=== PATIENT | male | born 1995 | race Caucasian/White ===

== ENCOUNTER 2023-03-07 12:55 | Outpatient (AMB) | payer MEDICAID, SELFPAY ==
--- NOTE | 2023-03-07 13:05 | MHC.OFFVIS ---
Intake Vital Signs 03/07/23 13:12 Height 5 ft 10 in Weight 205 lb BMI 29.4 Intake Visit Reasons: Vasectomy Consult Intake Note: Himanshu 27 yr old male presents today with his girlfriend Cinthya for a vasectomy consult. Patient reports he has 3 children. Allergies No Known Allergies [No Known Allergies*] Allergy (Unverified 03/07/23 13:12) HPI HPI Comments History of Present Illness Details Himanshu is a 27-year-old male who presents to the office as a new patient evaluation for vasectomy consult. 03/07/23-- The patient has three children with his female partner. The patient states that he does not want anymore children. Vasectomy procedure was discussed at length with the patient. He was informed that vasectomy is a safe, permanent, and effective form of control but there are risks involved. It may involve risk of hematoma, procedure failure which is rare, sperm granuloma which may cause mild pain, and congestion which may cause sense of pressure and resolves after several weeks. The patient was advised that it is necessary to use other types of control methods like condom until we send semen for analysis to make sure there is no more sperm in the semen which is done after two and a half months post vasectomy. Patient would be given antibiotic therapy as an infection prophylaxis before the procedure. Consent regarding the vasectomy consult was obtained. Evaluation today-- Blood: negative, leukocytes: negative. Plan: Vasectomy discussed to be scheduled. [facility] Social History (Updated 03/07/23 @ 13:13 by DESIREE Mueller) Current occupational status: employed Current occupation: [employer] Review of Systems Const All systems reviewed & are unremarkable except as noted in HPI and below Reports no additional complaints Eyes Reports no additional complaints ENT Reports no additional complaints Card Denies dyspnea Resp Denies cough and Denies dyspnea GI Reports no additional complaints Musc Reports no additional complaints Skin/Breast Denies rash and Denies unusual bruising Neuro Reports no additional complaints Psych Reports no additional complaints Endo Reports no additional complaints Eric/Lymph Reports no additional complaints Aller/Immun Reports no additional complaints Physical Exam Vital Signs: BMI result Body Mass Index 29.4 Const General: healthy appearing, no acute distress and well developed Orientation/consciousness: patient oriented x3 HEENT Head: Yes normocephalic and Yes atraumatic Eyes Conjunctivae: conjunctivae normal Neck Neck: Yes normal visual inspection Chest Chest palpation & inspection: normal inspection of the chest Resp Effort & Inspection: normal respiratory effort Cardio Rate: regular rate GI Inspection: Yes normal to inspection Skin General skin exam: no rashes or lesions noted Neuro General: patient oriented x3 Extrem General: No pedal edema Psych Appearance: grossly normal Affect: normal affect Results AMB Urinalysis, Automated UA Leukoctes 0 Carrillo/uL Last Edit by DESIREE Mueller on 03/07/23 13:19 UA Nitrite Negative [facility] 03/07/23 13:19 UA Urobilinogen 0.2 mg/dL Last Edit by Clarisa Sarah [facility] on 03/07/23 13:19 UA Protein 0 mg/dL Last Edit [facility] 03/07/23 13:19 UA pH 6.5 Last Edit by Clarisa Sarah [facility] on 03/07/23 13:19 UA Blood 0 Alex/uL Last Edit by Clarisa Sarah [facility] on 03/07/23 13:19 UA Specific Bertrand 1.005 Last Edit by Clarisa Sarah [facility] on 03/07/23 13:19 UA Ketone Negative Last Edit by Clarisa Sarah [facility] on 03/07/23 13:19 UA Bilirubin 0 mg/dL Last Edit [facility] 03/07/23 13:19 UA Glucose 0 mg/dL Last Edit by Clarisa Sarah [facility] on 03/07/23 13:19 Results Reviewed Results Reviewed: Laboratory Last Values Urine pH (Auto) 6.5 03/07/23 13:04 Specific Bertrand (Auto) 1.005 03/07/23 13:04 Urine Protein (Auto) 0 mg/dL 03/07/23 13:04 Glucose (UA)(Auto) 0 mg/dL 03/07/23 13:04 Urine Ketones (Auto) Negative 03/07/23 13:04 Urine Blood (Auto) 0 Alex/uL 03/07/23 13:04 Urine Nitrite (Auto) Negative 03/07/23 13:04 Urine Bilirubin (Auto) 0 mg/dL 03/07/23 13:04 Urine Urobilinogen (Auto) 0.2 mg/dL 03/07/23 13:04 Leukocyte Esterase (Auto) 0 Carrillo/uL 03/07/23 13:04 Assessment & Plan Assessment & Plan (1) Encounter for vasectomy counseling: Code(s): Z30.09 - Encounter for other general counseling and advice on contraception (2) Anxiety about health: Code(s): F41.8 - Other specified anxiety disorders Plan Vasectomy discussed to be scheduled. Orders: Orders AMB Urinalysis Automated 03/07/23 Z13.9 - Encounter for screening, unspecified Patient Instructions: The patient had an opportunity to ask questions regarding treatment plan. All questions were answered. Laboratory studies and physical exam results were discussed and reviewed in detail. No major barriers to understanding were identified. The patient expressed understanding and agreement with the above treatment plan. The patient is aware they should contact our office by phone for worsening of their current condition or the appearance of new symptoms. Compliance is encouraged with any medications and followup testing that is ordered. It is a privilege to be allowed the opportunity to participate in the urologic care of your patient. If you have any questions or concerns regarding treatment for the above conditions please do not hesitate to contact me. The office telephone contact is [phone]. This note is constructed in part using voice recognition software. While every effort has been made to ensure accuracy sagger soak errors may have been included. Yours sincerely, Mikala Valerio MD Coding Level of Care Code New Pt Level 4 (26983) Diagnoses Encounter for vasectomy counseling Z30.09 Anxiety about health F41.8
[2023-03-07 13:12] VITALS: BMI 29.4
== END 2023-03-07 13:57 | disposition home or self-care (01) ==
LOC: HO.HUSH 12:55
PROVIDERS: PCP Nurse Practitioner Community Health; Visit Provider Urology
DX: Z30.09 Encounter for other general counseling and advice on contraception (principal); F41.8 Other specified anxiety disorders
CPT/HCPCS: 99204

== ENCOUNTER → 2023-03-07 12:55 | Outpatient (BNVA) | payer MEDICAID, SELFPAY | PROVIDERS: PCP Nurse Practitioner Community Health; Visit Provider Urology | DX: Z30.2 Encounter for sterilization (principal) | CPT/HCPCS: 99202 ==

== ENCOUNTER 2023-04-15 08:57 | Day surgery (SDC) | payer MEDICAID, SELFPAY ==
[2023-04-11 13:49] VITALS: BMI 29.4
[2023-04-15 09:21] VITALS: BP 131/77; PULSE 64; RESP 15; TEMP 36.7; O2SAT 98
--- NOTE | 2023-04-15 09:44 | P.CONAN_ITS ---
[facility] Active Problems Active Problems: All Active Problems (Updated 04/15/23 @ 09:16 by Darlene George RN) Encounter for vasectomy counseling (Acute) Anxiety about health (Acute) Past Medical History Medical History No pertinent past medical history Surgical History Surgical History No pertinent past surgical history History of Problems with Anesthesia: No Social History Social History Patient Tobacco Use Status: Never used Tobacco Use of substances other than those prescribed or required for medical reasons: No Are you DNR?: No Advance Directives: No Advance Directives Information Provided: Yes Current occupational status: employed Current occupation: [employer] Allergies Allergy/AdvReac Type Severity Reaction Status Date / Time No Known Allergies Allergy Verified 04/15/23 09:17 [No Known Allergies*] Home Medications Medication Instructions Recorded Confirmed Last Taken Type No Known Home Meds 03/07/23 03/07/23 Unknown History Exam Exam Date and Time: April 15, 2023 0944 Height,Weight and Vital Signs: Height 5 ft 10 in Weight 92.986 kg Last Vital Signs Temp 98.0 F 04/15/23 09:21 Pulse 64 04/15/23 09:21 Resp 15 04/15/23 09:21 BP 131/77 04/15/23 09:21 Pulse Ox 98 04/15/23 09:21 O2 Del Method Room Air 04/15/23 09:21 Airway Mallampati Class: II TM Dist: >3cm Neck ROM: Full Loose/Missing/Broken Teeth: No Heart: RRR Lungs: CTA Assessment and Plan Assessment Anesthesia Assessment: Anesthesia Plan Discussed and Chart Reviewed Final Anesthetic Review History of Problems with Anesthesia: No NPO: Yes ASA Class: I Final Preanesthetic Review: Meds/Allgs Chart Reviewed, Consent Obtained/Reviewed and Anes Risks/Benef Reviewed Patient Risk: Low Procedure Risk: Low Anesthetic Plan Anesthetic Plan: MAC: Disposition: Standard PACU
[2023-04-15] MEDS: Lactated Ringers 1,000 ML 50 ML IVCONT (09:48)
--- NOTE | 2023-04-15 10:02 | MHC.SHP ---
Pre-Procedural Eval Section A Date of Service: 04/15/23 The patient is an INPATIENT: No The History & Physical has been completed within 30 days and I have reviewed it.: No Section B Chief Complaint: Vasectomy status Details of Present Illness: 27 year old male with desire for vasectomy, states he has 3 children and no desire to have more biological children, discussed and pt states understanding that vasectomy considered permanent form for male control, and needs to continue to use control for 3 months and until semen evaluated and determined no sperm. Relevant Family History (Specify if Yes): No Allergies: Allergies Allergy/AdvReac Type Severity Reaction Status Date / Time No Known Allergies Allergy Verified 04/15/23 09:17 [No Known Allergies*] Review of Systems Review of Systems Comment: 10 point ROS negative other than stated in HPI Exam Surgical H&P Exam: Normal: HEENT, Normal: Heart, Normal: Lungs and Normal: Neurological Plan Diagnosis/Plan: Unchanged I have reviewed the history and physical and performed a pertinent physical examination on my patient. No changes have occurred unless specified. Bilateral Vasectomy Time Spent With Patient Time: Total time managing care of this patient today ____ minutes.
--- NOTE | 2023-04-15 11:38 | W.PM.OPN ---
Operative Note Operative Note Date of Service: 04/15/23 Narrative: Preoperative diagnosis: Anxiety regarding unplanned Postoperative diagnosis: Anxiety regarding unplanned Procedure: Bilateral vasectomy Surgeon: Dr. Mikala Valerio Anesthesia: General Details of procedure:? The patient was brought into the operating room placed on the OR table in supine position.? 2 g of Ancef IV.? General anesthesia was administered.? The patient was prepped and draped in the usual sterile fashion. ? Time-out was done per protocol.? Both vasa were palpated through the skin using a 3 finger technique and at the penoscrotal junction. Starting on the left, the vas was elevated using a 3 finger grasping technique. 1% lidocaine/0.5% Marcaine was used to create a subdermal bubble.? Using the 15 blade knife an incision was made over the vas folowed by a sharp spreading instrument the fascia was spread longitudinally in line with the vasa. The vasa was elevated from the scrotum using a ring clamp. Sharp and blunt dissection was used divide the vasal sheath and to strip the vasal sheath from the vasa. The vasal sheath was dissected from the vas in a proximal and distal fashion. This allowed the blood vessels of the vasa to retract from the vasa. The vasa was grasped with a forcep clamp on both sides and elevated from the incision. The vas was clamped on either side and a segment sent for path. Using the needle tip cautery this was used to cauterize the proximal and caudal end of the vas. Using 3 -0 chromic, the fascia was used to over lay and bury the abdominal end of the vas. The testicular end was then allowed to retract into the vasal sheath. The similar procedure was repeated on the right side. Both skin incisions were clamped to seal. Bacitracin ointment and gauze was applied. The patient tolerated the procedure well. He was brought out of anesthesia. He understands the need to continue to use control methods. A semen sample should be brought for inspection under the microscope in 12 weeks. Drains: none Complications: none
[2023-04-15 11:43] VITALS: BP 114/56; PULSE 64; RESP 20; TEMP 36.6; O2SAT 97
[2023-04-15 11:58] VITALS: BP 113/55; PULSE 54; RESP 16; O2SAT 98
[2023-04-15 12:13] VITALS: BP 115/59; PULSE 57; RESP 17; TEMP 36.1; O2SAT 100
== END 2023-04-15 13:00 | disposition home or self-care (01) ==
PROVIDERS: Visit Provider Urology
PROC: (CPT 55250; principal; 2023-04-15 09:50)
DX: Z30.2 Encounter for sterilization (principal); F41.8 Other specified anxiety disorders
CPT/HCPCS: 55250; 88302; J0131; J0690; J2250; J2370; J2371; J3010

== ENCOUNTER → 2023-04-15 08:57 | Outpatient (BNV) | payer MEDICAID, SELFPAY | PROVIDERS: Visit Provider Urology | DX: Z30.2 Encounter for sterilization (principal) | CPT/HCPCS: 55250 ==

== ENCOUNTER 2023-07-14 13:14 | Outpatient (AMB) | payer MEDICAID, SELFPAY ==
--- NOTE | 2023-07-14 13:20 | A.OFFVIS_ITS ---
Intake Intake Visit Reasons: 12w/seman analysis Intake Note: Patient presents today for a follow-up on Semen Analysis: Meds- None Allergies to Antibiotic- No Known Allergies Blood Thinner- None Structural Engineering Project Manager Required: No Accompanied by: Self / Same As Patient Allergies No Known Allergies [No Known Allergies*] Allergy (Verified 07/14/23 13:27) HPI HPI Comments History of Present Illness Details Himanshu is a 27-year-old male who presents today for a follow-up. 07/14/23- He is followed today for semen analysis. s/p vasectomy 04/15/23 He is using condoms; with sexual intercourse. He is unsure how to proceed to collect the semen specimen. I reviewed this with the patient and advised to collect semen within an hour of his scheduled appointment. 07/14/23: Plan: We will set a new follow-up appointment for semen analysis. [facility] Medical History No pertinent past medical history Surgical History No pertinent past surgical history Social History Patient Tobacco Use Status: Never used Tobacco Current occupational status: employed Current occupation: [employer] Review of Systems Const All systems reviewed & are unremarkable except as noted in HPI and below Reports no additional complaints Eyes Reports no additional complaints ENT Reports no additional complaints Card Denies dyspnea Resp Denies cough and Denies dyspnea GI Reports no additional complaints Musc Reports no additional complaints Skin/Breast Denies rash and Denies unusual bruising Neuro Reports no additional complaints Psych Reports no additional complaints Endo Reports no additional complaints Eric/Lymph Reports no additional complaints Aller/Immun Reports no additional complaints Assessment & Plan Assessment & Plan (1) Anxiety about health: Code(s): F41.8 - Other specified anxiety disorders (2) Status post vasectomy: Code(s): Z98.52 - Vasectomy status Plan We will set a new follow-up appointment for semen analysis. Patient Instructions: The patient had an opportunity to ask questions regarding treatment plan. All questions were answered. Imaging, Laboratory studies and physical exam results were discussed and reviewed in detail. No major barriers to understanding were identified. The patient expressed understanding and agreement with the above treatment plan.? ? ? The patient is aware they should contact our office by phone for worsening of their current condition or the appearance of new symptoms. Compliance is encouraged with any medications and followup testing that is ordered.? ? ? It is a privilege to be allowed the opportunity to participate in the urologic care of your patient. If you have any questions or concerns regarding treatment for the above conditions please do not hesitate to contact me. The office telephone contact is [phone].? ? ? This note is constructed in part using voice recognition software. While every effort has been made to ensure accuracy insights analyst errors may have been included.? ? ? Yours sincerely,? ? ? Mikala Valerio MD? Coding Level of Care Code Est Pt Level 2 (49374) Diagnoses Anxiety about health F41.8 Status post vasectomy Z98.52
== END 2023-07-14 13:54 | disposition home or self-care (01) ==
PROVIDERS: PCP Internal Medicine; Visit Provider Urology
DX: F41.8 Other specified anxiety disorders (principal); Z98.52 Vasectomy status
CPT/HCPCS: 99024

== ENCOUNTER → 2023-07-14 13:14 | Outpatient (BNVA) | payer MEDICAID, SELFPAY | PROVIDERS: PCP Internal Medicine; Visit Provider Urology | DX: Z30.8 Encounter for other contraceptive management (principal); Z98.52 Vasectomy status | CPT/HCPCS: 99212 ==

== ENCOUNTER 2023-07-24 09:28 | Outpatient (AMB) | payer MEDICAID, SELFPAY ==
--- NOTE | 2023-07-24 09:29 | A.OFFVIS_ITS ---
Intake Intake Visit Reasons: 1w/seman analysis Intake Note: Patient presents today for a follow-up on 1 week Semen Analysis: Meds- None Allergies to Antibiotic- No Known Allergies Blood Thinner- None Assurance Services Manager Health Care Required: No Accompanied by: Self / Same As Patient Allergies No Known Allergies [No Known Allergies*] Allergy (Verified 07/14/23 13:27) HPI HPI Comments History of Present Illness Details Himanshu is a 28-year-old male who presents today to the office for a follow-up. 07/24/2023? He is here today for semen analysis after prior vasectomy. s/p vasectomy 04/15/23 He has no complaints since the procedure. I looked the semen under microscope, no sperm visualized. 07/24/2023: Plan: Follow-up PRN. [facility] Medical History No pertinent past medical history Surgical History No pertinent past surgical history Family History Father No problems noted. Mother No problems noted. Patient Tobacco Use Status: Never used Tobacco Current occupational status: employed Current occupation: [employer] Review of Systems Const All systems reviewed & are unremarkable except as noted in HPI and below Reports no additional complaints Eyes Reports no additional complaints ENT Reports no additional complaints Card Denies dyspnea Resp Denies cough and Denies dyspnea GI Reports no additional complaints Musc Reports no additional complaints Skin/Breast Denies rash and Denies unusual bruising Neuro Reports no additional complaints Psych Reports no additional complaints Endo Reports no additional complaints Eric/Lymph Reports no additional complaints Aller/Immun Reports no additional complaints Assessment & Plan Assessment & Plan (1) Status post vasectomy: Code(s): Z98.52 - Vasectomy status (2) Anxiety about health: Code(s): F41.8 - Other specified anxiety disorders Plan Follow-up PRN. Patient Instructions: The patient had an opportunity to ask questions regarding treatment plan. All questions were answered. Laboratory studies and physical exam results were discussed and reviewed in detail. No major barriers to understanding were identified. The patient expressed understanding and agreement with the above treatment plan. The patient is aware they should contact our office by phone for worsening of their current condition or the appearance of new symptoms. Compliance is encouraged with any medications and followup testing that is ordered. It is a privilege to be allowed the opportunity to participate in the urologic care of your patient. If you have any questions or concerns regarding treatment for the above conditions please do not hesitate to contact me. The office telephone contact is [phone]. This note is constructed in part using voice recognition software. While every effort has been made to ensure accuracy administrative volunteer errors may have been included. Yours sincerely, Mikaal Valeiro MD Coding Level of Care Code Est Pt Level 2 (59265) Diagnoses Status post vasectomy Z98.52 Anxiety about health F41.8
== END 2023-07-24 10:12 | disposition home or self-care (01) ==
PROVIDERS: PCP Internal Medicine; Visit Provider Urology
DX: Z98.52 Vasectomy status (principal); F41.8 Other specified anxiety disorders
CPT/HCPCS: 99212

== ENCOUNTER → 2023-07-24 09:28 | Outpatient (BNVA) | payer MEDICAID, SELFPAY | PROVIDERS: PCP Internal Medicine; Visit Provider Urology | DX: Z31.41 Encounter for fertility testing (principal); F41.8 Other specified anxiety disorders; Z98.52 Vasectomy status | CPT/HCPCS: 99212 ==